=== PATIENT | female | born 1960 | race Caucasian/White ===

== ENCOUNTER 2017-02-24 20:15 | Emergency (ER) | payer OTHER ==
[2017-02-24 20:48] VITALS: BP 118/64; PULSE 59; TEMP 98; BMI 27.1
--- NOTE | 2017-02-24 21:03 | PDOC ---
History of Present Illness - General Chief Complaint: Pain Stated Complaint: ABD PAIN Time Seen by Provider: 02/24/17 20:20 History Source: Patient Exam Limitations: No Limitations - History of Present Illness Travel History: No Initial Comments: 02/24/17 23:20 56-year-old female with a history of ulcer and GERD presents to the emergency department complaining of epigastric/right upper quadrant abdominal pain. Pain is described as 8/10 sharp nonradiating intermittent discomfort. Patient denies nausea/vomiting, fever/chills, chest pain, shortness of breath, flank pains, urinary symptoms. Patient has a history of gastric bypass in 2012 and had a perforated stomach approximately one month later. Patient states she is unsure what procedure she had for the perforation. Timing/Duration: reports: intermittent Quality: reports: moderate Abdominal Pain Onset Location: reports: RUQ, epigastric Past History - Past Medical History Allergies/Adverse Reactions: Allergies Allergy/AdvReac Type Severity Reaction Status Date / Time No Known Allergies Allergy Verified 02/24/17 20:46 Home Medications: Ambulatory Orders Duloxetine HCl [Cymbalta -] 60 mg PO BID 08/12/14 Sucralfate [Carafate] 1 gm PO QID 08/12/14 Gabapentin 600 mg PO BID 06/15/15 Trazodone HCl [Desyrel -] 60 mg PO HS 06/15/15 Omeprazole [Prilosec] 40 mg PO BID #240 capsule. 12/23/15 GI Disorders: Yes (GASTRIC BYPASS) Psychiatric Problems: Yes - Surgical History GI Surgery: Yes (GASTRIC BYPASS) Orthopedic Surgery: Yes - Immunization History Immunization Up to Date: Yes - Suicide/Smoking/Psychosocial Hx Smoking History: Never smoked Have you smoked in the past 12 months: No Information on smoking cessation initiated: No Hx Alcohol Use: No Drug/Substance Use Hx: No Substance Use Type: None Hx Substance Use Treatment: No Review of Systems - Review of Systems Able to Perform ROS?: Yes Comments:: 02/24/17 23:22 CONSTITUTIONAL: Absent: fever, chills, diaphoresis, generalized weakness, malaise, loss of appetite HEENT: Absent: rhinorrhea, nasal congestion, throat pain, throat swelling, difficulty swallowing, mouth swelling, ear pain, eye pain, visual Changes CARDIOVASCULAR: Absent: chest pain, loss of consciousness, palpitations, irregular heart rate, peripheral edema RESPIRATORY: Absent: cough, shortness of breath, dyspnea with exertion, orthopnea, wheezing, stridor, hemoptysis GASTROINTESTINAL: +RUQ pain/epigastric Absent: abdominal distension, nausea, vomiting, diarrhea, constipation, melena , hematochezia GENITOURINARY: Absent: dysuria, frequency, urgency, hesitancy, hematuria, flank pain, genital pain MUSCULOSKELETAL: Absent: myalgia, arthralgia, joint swelling SKIN: Absent: rash, itching, pallor HEMATOLOGIC/IMMUNOLOGIC: Absent: easy bleeding, easy bruising, lymphadenopathy, frequent infections ENDOCRINE: Absent: unexplained weight gain, unexplained weight loss, heat intolerance, cold intolerance Is the patient limited Lithuanian proficient: No *Physical Exam - Vital Signs Last Vital Signs Temp Pulse Resp BP Pulse Ox 98.0 F 59 L 14 118/64 99 02/24/17 20:46 02/24/17 20:46 02/24/17 20:46 02/24/17 20:46 02/24/17 20:46 - Physical Exam Comments: 02/24/17 23:22 GENERAL: Well developed, well nourished. Awake and alert. No acute distress. HEENT: Normocephalic, atraumatic. PERRLA, EOMI. No conjunctival pallor. Sclera are non- icteric. Moist mucous membranes. Oropharynx is clear. NECK: Supple. Full ROM. No JVD. Carotid pulses 2+ and symmetric, without bruits. No thyromegaly. No lymphadenopathy. CARDIOVASCULAR: Regular rate and rhythm. No murmurs, rubs, or gallops. Distal pulses are 2+ and symmetric. PULMONARY: No evidence of respiratory distress. Lungs clear to auscultation bilaterally. No wheezing, rales or rhonchi. ABDOMINAL: +RUQ pain/Epigastric pain on palp Soft. Non-distended. No rebound or guarding. No organomegaly. Normoactive bowel sounds. MUSCULOSKELETAL Normal range of motion at all joints. No bony deformities or tenderness. No CVA tenderness. EXTREMITIES: No cyanosis. No clubbing. No edema. No calf tenderness. SKIN: Warm and dry. Normal capillary refill. No rashes. No jaundice. NEUROLOGICAL: Alert, awake, appropriate. Cranial nerves 2-12 intact. No deficits to light touch and temperature in face, upper extremities and lower extremities. No motor deficits in the in face, upper extremities and lower extremities. Normoreflexic in the upper and lower extremities. Normal speech. Toes are down- going bilaterally. Gait is normal without ataxia. PSYCHIATRIC: Cooperative. Good eye contact. Appropriate mood and affect. ED Treatment Course - LABORATORY CBC & Chemistry Diagram: 02/24/17 21:30 02/24/17 21:30 *DC/Admit/Observation/Transfer Diagnosis at time of Disposition: GERD (gastroesophageal reflux disease) Qualifiers: Esophagitis presence: without esophagitis Qualified Code(s): K21.9 - Gastro- esophageal reflux disease without esophagitis; K21.9 - Gastro-esophageal reflux disease without esophagitis; K21.9 - Gastro-esophageal reflux disease without esophagitis - Discharge Dispostion Disposition: HOME Condition at time of disposition: Stable Admit: No - Referrals Referrals: Janice Randhawa [Primary Care Provider] - Jeffy Craig MD [Staff Physician] - - Patient Instructions Printed Discharge Instructions: DI for Gastroesophageal Reflux Disease (GERD) Additional Instructions: There is no bowel obstruction, free air or free fluid. Negative for diverticulitis or colitis. Normal appendix visualized. Gastric bypass noted. Hiatal hernia noted. Large left renal cyst. Small right renal cyst. No acute renal ureteral or urinary bladder abnormalities. Normal liver. Normal gallbladder Follow-up with your physician and the charge account clerk listed on your discharge. Return back to the emergency department for severe/persistent or worsening symptoms.
[2017-02-24] MEDS ORDERED: FAMOTIDINE 20 MG/50 ML IVPB 50 ML IVPB ONE ×2 (21:04→21:25)
[2017-02-24] MEDS ORDERED: MAG HYDROX/AL HYDROX/SIMETH 30 ML UNIT-DOSE CUP PO ONE (21:04)
[2017-02-24] MEDS ORDERED: MAG HYDROX/AL HYDROX/SIMETH 30 ML UNIT-DOSE CUP ONE (21:24)
[2017-02-24 21:32] LABS: BASOPHIL 0.5 % (0-2.0); EOSINOPHIL 0.8 % (0-4.5); MCHC 33.2 g/dl (32.0-36.0); MEAN CELL VOLUME 87.2 fl (80-96); MEAN PLT VOLUME 12.1 fl (7.5-11.1); NEUTROPHILS 86.8 % (42.8-82.8); RDW 14.5 % (11.6-15.6); WHITE BLOOD COUNT 12.3 K/mm3 (4.0-10.0)
[2017-02-24 21:51] LABS: URINE APPEARANCE CLEAR; URINE BILIRUBIN NEGATIVE (NEGATIVE); URINE BLOOD 1+ (NEGATIVE); URINE COLOR LTYELLOW; URINE GLUCOSE (UA) NEGATIVE (NEGATIVE); URINE KETONE TRACE (NEGATIVE); URINE NITRITE NEGATIVE (NEGATIVE); URINE PROTEIN NEGATIVE (NEGATIVE); URINE UROBILINOGEN NEGATIVE mg/dL (0.2-1.0)
[2017-02-24 21:53] LABS: URINE BACTERIA RARE /hpf (NONE SEEN); URINE MUCUS RARE; URINE RBC 2 /hpf (0-3); URINE WBC 2 /hpf (3-5)
[2017-02-24 21:56] LABS: PLATELET COUNT 171 K/MM3 (134-434); PLATELET ESTIMATE DECREASED (NORMAL)
[2017-02-24 21:57] LABS: PLATELET COMMENT2 NO CLUMPING NOTED
[2017-02-24 22:13] LABS: ALBUMIN 3.8 g/dl (3.4-5.0); ANION GAP 7 (8-16); BILIRUBIN,TOTAL 0.3 mg/dL (0.2-1.0); CALCIUM 8.8 mg/dL (8.5-10.1); CO2 28 mmol/L (21-32); CREATININE 0.8 mg/dL (0.55-1.02); GLUCOSE,RANDOM 112 mg/dL (74-106); SGOT/AST 19 U/L (15-37); SGPT/ALT 21 U/L (12-78); TOT PROT 7.4 g/dl (6.4-8.2)
[2017-02-24 22:14] LABS: AMYLASE 49 U/L (25-115)
[2017-02-24 22:14] LABS: ALK PHOS 143 U/L (45-117)
--- NOTE | 2017-02-24 23:39 | PDOC ---
*Physical Exam - Vital Signs Last Vital Signs Temp Pulse Resp BP Pulse Ox 98.0 F 59 L 14 118/64 99 02/24/17 20:46 02/24/17 20:46 02/24/17 20:46 02/24/17 20:46 02/24/17 20:46 ED Treatment Course - LABORATORY CBC & Chemistry Diagram: 02/24/17 21:30 02/24/17 21:30 - ADDITIONAL ORDERS Additional order review: Laboratory Results 02/24/17 02/24/17 02/24/17 21:47 21:45 21:30 Sodium 141 Potassium 4.3 Chloride 106 Carbon Dioxide 28 Anion Gap 7 L BUN 15 D Creatinine 0.8 D Creat Clearance w eGFR > 60 Random Glucose 112 H D Calcium 8.8 Total Bilirubin 0.3 D AST 19 D ALT 21 D Alkaline Phosphatase 143 H D Total Protein 7.4 D Albumin 3.8 D Total Amylase 49 Lipase 110 Urine Color Ltyellow Urine Appearance Clear Urine pH 7.0 Urine Protein Negative Urine Glucose (UA) Negative Urine Ketones Trace H Urine Blood 1+ H Urine Nitrite Negative Urine Bilirubin Negative Urine Urobilinogen Negative Urine RBC 2 Urine WBC 2 Ur Epithelial Cells Rare Urine Bacteria Rare Urine Mucus Rare 02/24/17 21:30 RBC 4.60 MCV 87.2 MCHC 33.2 RDW 14.5 MPV 12.1 H D Neutrophils % 86.8 H D Lymphocytes % 8.0 D Monocytes % 3.9 Eosinophils % 0.8 D Basophils % 0.5 - Medications Given in the ED: ED Medications Discontinued Medications Generic Name Dose Route Start Last Admin Trade Name Freq PRN Reason Stop Dose Admin Al Hydroxide/Mg Hydroxide 30 ml 02/24/17 21:04 02/24/17 21:30 Mylanta Oral Suspension - PO 02/24/17 21:05 30 ml ONCE ONE Administration Famotidine/Sodium Chloride 50 mls @ 100 mls/hr 02/24/17 21:04 02/24/17 21:35 Pepcid 20 Mg Premixed Ivpb - IVPB 02/24/17 21:33 100 mls/hr ONCE ONE Administration Medical Decision Making - Medical Decision Making 02/24/17 23:38 agree with care from NANY Rees *DC/Admit/Observation/Transfer Diagnosis at time of Disposition: GERD (gastroesophageal reflux disease) - Discharge Dispostion Disposition: HOME Condition at time of disposition: Stable - Referrals Referrals: Jeffy Craig MD [Staff Physician] - Janice Randhawa [Primary Care Provider] - - Patient Instructions Printed Discharge Instructions: DI for Gastroesophageal Reflux Disease (GERD) Additional Instructions: There is no bowel obstruction, free air or free fluid. Negative for diverticulitis or colitis. Normal appendix visualized. Gastric bypass noted. Hiatal hernia noted. Large left renal cyst. Small right renal cyst. No acute renal ureteral or urinary bladder abnormalities. Normal liver. Normal gallbladder Follow-up with your physician and the feed mixer helper listed on your discharge. Return back to the emergency department for severe/persistent or worsening symptoms.
[2017-02-25 08:46] LABS: URINE LEUK ESTERASE Negative (NEGATIVE)
== END 2017-02-25 03:41 | disposition home or self-care (01) ==
LOC: JER 20:15
PROC: 3E033GC Introduction of Other Therapeutic Substance into Peripheral Vein, Percutaneous Approach (ICD-10-PCS; principal; 2017-02-24)
DX: K21.9 Gastro-esophageal reflux disease without esophagitis (principal); Z87.19 Personal history of other diseases of the digestive system; Z98.84 Bariatric surgery status
CPT/HCPCS: 36415; 74177-TC; 76705-TC; 80053; 81003; 81015; 82150; 83690; 85025; 96365; 99282-25

== ENCOUNTER 2023-06-26 05:36 | Emergency (ER) | payer OTHER ==
[2023-06-26 05:50] VITALS: BP 131/76; PULSE 71; RESP 20; TEMP 97.6; BMI 24.4
== END 2023-06-26 06:25 | disposition home or self-care (01) ==
LOC: JER 05:36
DX: L70.0 Acne vulgaris (principal)
CPT/HCPCS: 99282-25